=== PATIENT | male | born 1985 | race Caucasian/White ===

== ENCOUNTER 2019-11-04 04:11 | Observation (INO) | payer OTHER ==
[2019-11-04] MEDS ORDERED: Ketorolac INJ* 30 MG/ML 1 ML VIAL IV PUSH ONE (04:32)
[2019-11-04] MEDS ORDERED: NS 0.9% 1000 ML** 2,000 ML IV ONE (04:32)
[2019-11-04] MEDS ORDERED: Morphine 10 MG/ML VIAL (1 ml) IV ONE (04:32)
[2019-11-04] MEDS ORDERED: Ondansetron INJ* 2 MG/ML VIAL IV ONE (04:32)
[2019-11-04 04:53] LABS: Urine Appearance Clear; Urine Bilirubin Negative (Negative); Urine Blood Negative (Negative); Urine Color Amber; Urine Glucose Negative (Negative); Urine Ketones 2+ (Negative); Urine Nitrite Negative (Negative); Urine Protein 2+(100 mg/dL) (Negative); Urine Specific Gravity 1.038 (1.010-1.030); Urine Urobilinogen Negative (Negative)
[2019-11-04 05:03] LABS: Urine Bacteria Absent (Absent); Urine Red Blood Cell 1+(3-5/hpf) (Absent); Urine White Blood Cell Trace(0-5/hpf) (Absent)
[2019-11-04 05:10] LABS: ABS Basophils 0.1 10^3/ul (0-0.2); ABS Lymphocytes 1.4 10^3/ul (1.0-4.8); ABS Neutrophils 16.1 10^3/ul (1.5-7.7); Hematocrit 47 % (42-52); Hemoglobin 16.3 g/dL (14.0-18.0); Lymphocyte % 7.4 %; Mean Corpuscular HGB Conc 35 g/dL (31-36); Mean Corpuscular Hemoglobin 30 pg (27-31); Mean Corpuscular Volume 86 fL (80-94); Mean Platelet Volume 9.2 fL (7.4-10.4); Platelet Count 239 10^3/uL (150-450); Red Blood Count 5.43 10^6 /uL (4.18-5.48); Red Cell Distribution Width 13 % (10-15); White Blood Count 18.5 10^3/uL (3.5-10.8)
[2019-11-04 05:32] LABS: Albumin 5.7 g/dL (3.2-5.2); Albumin/Globulin Ratio 1.6 (1-3); BUN/Creatinine Ratio 16.7 (8-20); Calcium 11.9 mg/dL (8.6-10.3); EGFR African American 88.5 (>60); EGFR Non-African American 73.1 (>60); Globulin 3.6 g/dL (2-4); Potassium 3.9 mmol/L (3.5-5.0); Total Bilirubin 0.7 mg/dL (0.2-1.0); Total Protein 9.3 g/dL (6.4-8.9)
--- NOTE | 2019-11-04 07:30 | ED ---
Progress - Progress Note Progress Note: The patient is a sign-out from Dr. Ulysses Gould MD, to Dr. Triston Killian MD, at change of shift at 0700 on 11/04/2019, pending Gallbladder Ultrasound and disposition. Gallbladder ultrasound reveals cholecystitis with 4 mm gallbladder wall thickening and trace fluids. 0943 - the patient's case was discussed with Dr. Stephens, and he will see the patient in the ED, and he will admit the patient for surgery - Results/Orders Results/Orders: Gallbladder Ultrasound Impression: Concern for cholecystitis in the context of 4 mm gallbladder wall thickening and trace pericholecystic fluid. If clinically equivocal, a HIDA scan could be performed. ED physician has reviewed this report. Course/Dx - Course Course Of Treatment: This patient was signed out to Dr. Sanchez at shift change. He requested to follow-up the right upper quadrant ultrasound. He reports that the patient has right upper quadrant pain and increased WBCs and LFTs. Right upper quadrant ultrasound impression: Concerns for cholecystitis in the context of 4 mm gallbladder wall thickening and trace pericholecystic fluid. I discussed the case with Dr. Stephens from surgery and he agrees to admit the patient to his services. The patient was given Zosyn in the ED. - Diagnoses Provider Diagnoses: Cholecystitis - Provider Notifications Discussed Care Of Patient With: López Stephens - surgery Time Discussed With Above Provider: 09:43 Instructed by Provider To: Will See In ED - I discussed the patient's case with Dr. Stephens, and he will come see the patient in the ED. He will admit the patient. Discharge ED - Sign-Out/Discharge Documenting (check all that apply): Patient Departure - Patient admitted for surgery by Dr. Stephens., Receiving Sign-Out Receiving patient FROM: Ulysses Gould - Patient is a sign-out from Dr. Ulysses Gould MD, at 0700 on 11/04/2019, pending Gallbladder Ultrasound and disposition. - Discharge Plan Condition: Stable Disposition: ADMITTED TO [facility] - Billing Disposition and Condition Condition: STABLE Disposition: Admitted to [facility] - Attestation Statements Document Initiated by Scribe: Yes Documenting Scribe: Patito Portillo Provider For Whom Scribe is Documenting (Include Credential): Dr. Triston Killian MD Scribe Attestation: Patito Ennis scribed for Dr. Triston Killian MD on 11/04/19 at 1849. Scribe Documentation Reviewed: Yes Provider Attestation: The documentation as recorded by the scribe, Patito Portillo accurately reflects the service I personally performed and the decisions made by me, Dr. Triston Killian MD Status of Scribe Document: Viewed Procedures - Sedation Patient Received Moderate/Deep Sedation with Procedure: No
--- NOTE | 2019-11-04 07:30 | ED ---
Abdominal Pain/Male - HPI Summary HPI Summary: Patient is a 34 y/o M presenting to [facility] with complaints of upper abdominal pain and N/V. He states that the pain had onset yesterday and has progressively worsened. He reports Hx of gallstones. Patient notes that he has had similar episodes of pain in the past but notes this current episode has been more persistent. On triage, pain is rated 4/10. It is noted that the patient had [place] food for lunch and an energy drink which aggravated his pain. He reports Hx of asthma. He took two Tylenol, one at 2100 12/3 and another at 0200 12/4. He takes supplemental vitamins. Home medications and allergies are reviewed. - History of Current Complaint Chief Complaint: EDAbdPain Stated Complaint: ABD PAIN PER PT Time Seen by Provider: 11/04/19 04:24 Hx Obtained From: Patient Onset/Duration: Lasting Hours, Still Present Timing: Constant, Lasting Hours Severity Currently: Moderate Pain Intensity: 4 Pain Scale Used: 0-10 Numeric Location: Other - upper abdomen Aggravating Factor(s): Food, Other: - energy drink Associated Signs And Symptoms: Positive: Nausea, Vomiting. Negative: Fever - Allergies/Home Medications Allergies/Adverse Reactions: Allergies Allergy/AdvReac Type Severity Reaction Status Date / Time No Known Allergies Allergy Verified 11/04/19 04:17 PMH/Surg Hx/FS Hx/Imm Hx GI History: Reports: Hx Gall Bladder Disease Sensory History: Denies: Hx Legally Blind, Hx Deafness Opthamlomology History: Denies: Hx Legally Blind EENT History: Denies: Hx Deafness Infectious Disease History: No Infectious Disease History: Denies: Traveled Outside the [place] in Last 30 Days - Family History Known Family History: Negative: Renal Disease - Social History Alcohol Use: Rare Substance Use Type: Reports: None Smoking Status (MU): Never Smoked Tobacco Review of Systems Negative: Fever - on vitals, temp is 98.4 F Positive: Abdominal Pain, Vomiting, Nausea All Other Systems Reviewed And Are Negative: Yes Physical Exam - Summary Physical Exam Summary: Appearance: Well-appearing, Well-nourished, restless and uncomfortable appearing Skin: Warm, dry, no obvious rash Eyes: sclera anicteric, no conjunctival pallor ENT: mucous membranes moist, pharynx appears normal Neck: Supple, nontender Respiratory: Clear to auscultation, no signs of respiratory distress Cardiovascular: Normal S1, S2. No murmurs. Normal distal pulses in tibial and radial bilaterally. Abdomen: Soft, Mild epigastric and RUQ tenderness, normal active bowel sounds present Musculoskeletal: Normal, Strength/ROM Intact Neurological: A&Ox3, awake and alert, mentation is normal, speech is fluent and appropriate Psychiatric: affect is normal, does not appear anxious or depressed Triage Information Reviewed: Yes Vital Signs On Initial Exam: Initial Vitals Temp Pulse Resp BP Pulse Ox 98.4 F 78 18 123/85 98 11/04/19 04:17 11/04/19 04:17 11/04/19 04:17 11/04/19 04:17 11/04/19 04:17 Vital Signs Reviewed: Yes Procedures - Sedation Patient Received Moderate/Deep Sedation with Procedure: No Diagnostics - Vital Signs Vital Signs Temp Pulse Resp BP Pulse Ox 11/04/19 07:00 64 95 11/04/19 06:00 75 95 11/04/19 05:53 82 115/66 96 11/04/19 05:23 81 119/59 90 11/04/19 05:10 72 133/70 93 11/04/19 05:00 75 98 11/04/19 04:53 70 18 135/74 98 11/04/19 04:42 76 159/76 98 11/04/19 04:17 98.4 F 78 18 123/85 98 - Laboratory Lab Results: Lab Results 11/04/19 11/04/19 11/04/19 Range/Units 04:42 05:00 05:00 WBC 18.5 H (3.5-10.8) 10^3/uL RBC 5.43 (4.18-5.48) 10^6 /uL Hgb 16.3 (14.0-18.0) g/dL Hct 47 (42-52) % MCV 86 (80-94) fL MCH 30 (27-31) pg MCHC 35 (31-36) g/dL RDW 13 (10-15) % Plt Count 239 (150-450) 10^3/uL MPV 9.2 (7.4-10.4) fL Neut % (Auto) 87.0 % Lymph % (Auto) 7.4 % [place] % (Auto) 5.3 % Eos % (Auto) 0.0 % Baso % (Auto) 0.3 % Absolute Neuts (auto) 16.1 H (1.5-7.7) 10^3/ul Absolute Lymphs (auto) 1.4 (1.0-4.8) 10^3/ul Absolute Monos (auto) 1.0 H (0-0.8) 10^3/ul Absolute Eos (auto) 0.0 (0-0.6) 10^3/ul Absolute Basos (auto) 0.1 (0-0.2) 10^3/ul Absolute Nucleated RBC 0.0 10^3/ul Nucleated RBC % 0.0 Sodium 137 (135-145) mmol/L Potassium 3.9 (3.5-5.0) mmol/L Chloride 101 (101-111) mmol/L Carbon Dioxide 23 (22-32) mmol/L Anion Gap 13 H (2-11) mmol/L BUN 19 (6-24) mg/dL Creatinine 1.14 (0.67-1.17) mg/dL Est GFR ( Amer) 88.5 (>60) Est GFR (Non-Af Amer) 73.1 (>60) BUN/Creatinine Ratio 16.7 (8-20) Glucose 131 H (70-100) mg/dL Calcium 11.9 H (8.6-10.3) mg/dL Total Bilirubin 0.70 (0.2-1.0) mg/dL AST 76 H (13-39) U/L ALT 207 H (7-52) U/L Alkaline Phosphatase 97 (34-104) U/L Total Protein 9.3 H (6.4-8.9) g/dL Albumin 5.7 H (3.2-5.2) g/dL Globulin 3.6 (2-4) g/dL Albumin/Globulin Ratio 1.6 (1-3) Lipase 19 (11.0-82.0) U/L Urine Color [place] Urine Appearance Clear Urine pH 5.0 (5-9) Ur Specific [place] 1.038 H (1.010-1.030) Urine Protein 2+(100 mg/dl) A (Negative) Urine Ketones 2+ A (Negative) Urine Blood Negative (Negative) Urine Nitrate Negative (Negative) Urine Bilirubin Negative (Negative) Urine Urobilinogen Negative (Negative) Ur Leukocyte Esterase Negative (Negative) Urine WBC (Auto) Trace(0-5/hpf) (Absent) Urine RBC (Auto) 1+(3-5/hpf) A (Absent) Urine Bacteria Absent (Absent) Urine Glucose Negative (Negative) Urine Ascorbic Acid * A (Negative) Result Diagrams: 11/04/19 05:00 11/04/19 05:00 Lab Statement: Any lab studies that have been ordered have been reviewed, and results considered in the medical decision making process. - EKG 0413 Cardiac Rate: NL - rate of 72 BPM EKG Rhythm: Sinus Rhythm Summary of EKG Findings: EKG showed NSR at 72 BPM, P waves, QRS complex, and T waves are within normal limits, T waves and intervals are normal, no ischemic changes, no STEMI. This is a normal EKG. ED physician has reviewed and interpreted this EKG. Abdominal Pain Male Course/Dx - Course Course Of Treatment: Patient is a 34 y/o M presenting to [facility] with complaints of upper abdominal pain and N/V. He states that the pain had onset yesterday and has progressively worsened. He reports Hx of gallstones. Patient notes that he has had similar episodes of pain in the past but notes this current episode has been more persistent. On physical exam, patient is noted to be restless and uncomfortable appearing. Mild epigastric and RUQ tenderness noted. EKG showed NSR at 72 BPM, P waves, QRS complex, and T waves are within normal limits, T waves and intervals are normal, no ischemic changes, no STEMI. This is a normal EKG. Bloodwork was obtained. Abnormal values include WBC 18.5, absolute neuts 16.1, absolute monos 1, anion gap 13, glucose 131, calcium 11.9, AST 76, ALT 207 , total protein 9.3, albumin 5.7. UA showed 2+ protein, 2+ ketones, 1+ RBC, ascorbic acid present. During ED course, patient received fluids, Zofran 8 mg IV , morphine 10 mg IV, and toradol 10 mg IV. Patient is signed out to Dr. Vogel at 0700 11/04/19 shift change pending US gallbladder. - Diagnoses Provider Diagnoses: Cholecystitis Discharge ED - Sign-Out/Discharge Documenting (check all that apply): Sign-Out Patient Signing out patient TO: Triston Vogel - Discharge Plan Condition: Stable Referrals: No Primary Care Phys,NOPCP [Primary Care Provider] - - Attestation Statements Document Initiated by Scribe: Yes Documenting Scribe: MARICHUY BURTON Provider For Whom Scribe is Documenting (Include Credential): TRISTON VOGEL MD Scribe Attestation: IMARICHUY, scribed for TRISTON VOGEL MD on 11/04/19 at 0732. Status of Scribe Document: Ready
[2019-11-04] MEDS ORDERED: Piperacillin/Tazobac ADVAN(*) 3.375 GM in NS 0.9% 100 ML* 100 ML IVPB ONE (09:44)
[2019-11-04] MEDS ORDERED: Ondansetron INJ* 2 MG/ML VIAL IV PRN (11:55)
[2019-11-04] MEDS ORDERED: HYDROmorphone INJ1* 1 MG/ML SYRINGE IV SLOW PU PRN (11:55)
[2019-11-04 12:07] LABS: C Reactive Protein 7.88 mg/L (<8.01)
--- NOTE | 2019-11-04 13:05 | HP ---
ADMISSION HISTORY AND PHYSICAL: DATE OF ADMISSION: 11/04/19 CHIEF COMPLAINT: Epigastric and right upper quadrant abdominal pain and known gallstones. HISTORY OF PRESENT ILLNESS: Mr. 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 He was previously living in [place] and he states that over the past several years he has had multiple episodes of epigastric and right upper quadrant abdominal pain, mainly after eating larger meals at night. He had an extensive workup, which we do not have results available, but he was told that he had gallstones and at that time it was recommended that he undergo a cholecystectomy. His schedule was complicated with his recent move and he has not sought care here in [place] for his gallstones. He states he has had persistent intermittent typical biliary colicky type pain. Yesterday, however, he had rather large meal and an energy drink for lunch and pain became aggravated in its typical fashion, becoming quite severe with associated nausea and vomiting. The pain persisted and, due to its longer duration than usual and the fact that the pain was quite severe, he presented to the emergency room. Here, he was noted to be afebrile with stable vital signs. He was noted to have tenderness in the epigastric and right upper quadrant. Laboratory workup included a white blood cell count of 18,000 with a slight increase in neutrophils. Electrolytes, BUN and creatinine were unremarkable. He has total bilirubin of 0.7 and AST and ALT of 76 and 207 with a normal alkaline phosphatase. Lipase was normal. He underwent an ultrasound of his gallbladder. I did review these images. These show multiple gallstones within the gallbladder and gallbladder wall thickened at 4 mm with some trace pericholecystic fluid. This is concerning for acute calculous cholecystitis. Surgical consultation was obtained. He received morphine and Zofran in the emergency room and is feeling better on initial visit. PAST MEDICAL HISTORY: Asthma, but has not been active since moving to [place]. PAST SURGICAL HISTORY: Tonsillectomy. MEDICATIONS: Include: 1. Pepto-Bismol. 2. Tylenol. 3. Multivitamins. ALLERGIES: He has no known drug allergies. SOCIAL HISTORY: He is . 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 He drinks alcohol on a social basis. He is originally from [facility]. He does not use tobacco. His is present in the emergency room. REVIEW OF SYSTEMS: A full 14-point review was completed. Pertinent positives as noted above. Cardiovascular: He has no chest pain or cardiac disease. Pulmonary: As per above. GI: As per above. He has no dysphagia or reflux. : There has been no urgency or hematuria. PHYSICAL EXAMINATION GENERAL: He is a slightly overweight male with normal attention to grooming. He is awake, alert, and conversive, appears to be in no apparent distress. VITAL SIGNS: He is afebrile, pulse 78, blood pressure 123/75. HEENT: Sclerae are anicteric. Oral mucosa is slightly dry. LUNGS: Clear to auscultation with normal respiratory effort. HEART: Regular rate and rhythm without murmurs, rubs, or gallops. ABDOMEN: Soft and somewhat protuberant. He has no prior surgical incisions or hernias. He has some mild tenderness with guarding in the epigastric and right upper quadrant. There is no tenderness elsewhere in the abdomen. Bowel sounds were normal throughout. EXTREMITIES: Show no cyanosis or edema. IMPRESSION: Acute calculous cholecystitis. The patient has known history of gallstones and has had what appears to be symptomatic cholelithiasis for many years and it was recommended that he undergo a cholecystectomy while living in [place], but he has not followed up with primary care or surgeon here in [place]. He presents now with persistent epigastric and right upper quadrant abdominal pain with a significant leukocytosis and mild elevation of his liver transaminases, but a normal bilirubin. Ultrasound findings consistent with acute calculous cholecystitis. I had a long discussion with the patient and his concerning management. I believe that he does have acute calculous cholecystitis and my recommendation would be admission to the hospital today with initiation of IV antibiotics and IV fluids with a planned laparoscopic cholecystectomy. We discussed other options. He was somewhat reluctant to be admitted and proceed with surgery and had a multitude of questions regarding outpatient management. I did discuss treating him with oral antibiotics as an outpatient with followup in the office with scheduled interval cholecystectomy; however, I do not feel that this is most likely the optimal management and I suspect that if he does not improve with antibiotics in the next 24 to 48 hours, he will return to the emergency room later this week with a more severe case of cholecystitis and increased difficulty with a laparoscopic cholecystectomy and subsequent increased risks. I discussed all of this and my firm recommendation was that he be admitted today for surgery in the next 24 to 48 hours. I did allow he and his to have discuss this among themselves and they have decided that they would like to be admitted. I am not certain he will be placed on the add-on schedule for a cholecystectomy today, but due to the scheduling restrictions, surgery may not be performed until tomorrow and he is well aware of this. PLAN: 1. He will be admitted to the surgical service on same-day surgery. 2. We will keep him n.p.o. 3. IV Zosyn will be started. 4. Normal saline will be administered. 5. Analgesia. The procedure of laparoscopic cholecystectomy was discussed with the patient and his and the risks of, but not limited to bleeding, infection, intraabdominal abscess formation, injury to peritoneal and retroperitoneal structures, possibility of an open procedure, recovery times, risks of general anesthesia were all discussed. [id number]/[facility] #: [id number] LUCILA
[2019-11-04] MEDS: NS 0.9% 1000 ML** 1,000 ML IV SCH ×2 (13:15→22:53)
[2019-11-04] MEDS: Piperacillin/Tazobactam VIAL*) 3.375 GM in NS 0.9% 100 ML* 100 ML IVPB SCH ×2 (15:59→22:51)
[2019-11-05] MEDS ORDERED: Acetaminophen TAB* 325 MG PO ONE (06:00)
[2019-11-05] MEDS ORDERED: Lactated Ringers 1000 ML Bag* 1,000 ML IV SCH (06:00)
[2019-11-05] MEDS ORDERED: Buffered Lidocaine 1% SYRIN* 1 ML/SYRINGE INTRADERM ONE (06:00)
[2019-11-05] MEDS: NS 0.9% 1000 ML** 1,000 ML IV SCH (07:02)
[2019-11-05] MEDS ORDERED: Piperacillin/Tazobactam VIAL*) 3.375 GM in NS 0.9% 100 ML* 100 ML IVPB SCH (07:30)
[2019-11-05 10:38] LABS: ABS Eosinophils 0.1 10^3/ul (0-0.6); ABS Lymphocytes 2.2 10^3/ul (1.0-4.8); ABS Monocytes 0.7 10^3/ul (0-0.8); ABS Neutrophils 6.2 10^3/ul (1.5-7.7); Eosinophil % 1.1 %; Hematocrit 39 % (42-52); Hemoglobin 13.8 g/dL (14.0-18.0); Lymphocyte % 23.7 %; Mean Corpuscular HGB Conc 35 g/dL (31-36); Mean Corpuscular Hemoglobin 30 pg (27-31); Mean Corpuscular Volume 86 fL (80-94); Mean Platelet Volume 8.8 fL (7.4-10.4); Platelet Count 168 10^3/uL (150-450); Red Blood Count 4.57 10^6 /uL (4.18-5.48); Red Cell Distribution Width 13 % (10-15); White Blood Count 9.1 10^3/uL (3.5-10.8)
[2019-11-05 10:54] LABS: Albumin 4.2 g/dL (3.2-5.2); Albumin/Globulin Ratio 1.8 (1-3); BUN/Creatinine Ratio 10.1 (8-20); Calcium 8.9 mg/dL (8.6-10.3); EGFR African American 104.1 (>60); Globulin 2.4 g/dL (2-4); Indirect Bilirubin 0.7 mg/dL (0.3-1.0); Total Bilirubin 0.8 mg/dL (0.2-1.0); Total Protein 6.6 g/dL (6.4-8.9)
[2019-11-05] MEDS ORDERED: fentaNYL* 50 MCG/ML 5 ML VIAL (250 MCG VIAL) ONE (10:57)
[2019-11-05] MEDS ORDERED: Midazolam* 1 MG/ML 2 ML VIAL (2 MG) ONE (10:57)
[2019-11-05] MEDS ORDERED: Propofol* 10 MG/ML 20 ML BTL ONE (10:58)
[2019-11-05] MEDS ORDERED: Lidocaine 2% PF * 5 ML VIAL ONE (10:58)
[2019-11-05] MEDS ORDERED: Bupivacaine 0.25% SDV* 30 ML ONE (11:37)
[2019-11-05] MEDS ORDERED: Rocuronium* 10 MG/ML VIAL ONE ×2 (12:25→13:18)
[2019-11-05] MEDS ORDERED: Ondansetron INJ* 2 MG/ML VIAL ONE (12:27)
[2019-11-05] MEDS ORDERED: Dexamethasone IV* 4 MG/ML 1 ML (4 MG) ONE (12:28)
[2019-11-05] MEDS ORDERED: HYDROmorphone INJ1* 1 MG/ML SYRINGE ONE (12:28)
[2019-11-05] MEDS ORDERED: HYDROmorphone INJ1* 1 MG/ML SYRINGE IV PRN (12:42)
[2019-11-05] MEDS ORDERED: Ondansetron INJ* 2 MG/ML VIAL IV PRN (12:42)
[2019-11-05] MEDS ORDERED: diPHENhydraMINE IV* 50 MG/ML 1 ml VIAL (BENADRYL) IV PRN (12:42)
[2019-11-05] MEDS ORDERED: PROCHLORPERAZINE INJ 5 MG/ML 2 ML VIAL IV PRN (12:42)
[2019-11-05] MEDS ORDERED: Naloxone* 0.4 MG/ML 1 ML VIAL IV PRN (12:42)
[2019-11-05] MEDS ORDERED: oxyCODONE TAB* 5 MG TAB PO PRN (12:42)
[2019-11-05] MEDS ORDERED: Glycopyrrolate IV* 0.2 MG/ML 1 ML VIAL ONE (13:50)
[2019-11-05] MEDS ORDERED: Neostigmine Methylsulfate* 3 MG/3 ML SYRINGE ONE (13:50)
[2019-11-05] MEDS ORDERED: Ketorolac INJ* 30 MG/ML 1 ML VIAL ONE (13:51)
--- NOTE | 2019-11-05 14:16 | BRIEFOPN ---
Brief Operative/Procedure Note - Operation Details Pre-Op Diagnosis: Acute cholecystitis Post-Op Diagnosis: Acute cholecystitis Procedures: Laparoscopic cholecystectomy Surgeon(s)/Proceduralists: Ashlee Sargent MD. Product Test Specialist: Leeroy Ernst MD. Kong FERNANDEZ student Anesthesia: General Estimated Blood Loss: 10ml Findings: Inflamed and distended gallbladder Specimen(s)/Culture(s) Description: Gallbladder Complications: None
[2019-11-05] MEDS ORDERED: Acetaminophen TAB* 325 MG ONE (15:24)
[2019-11-05 16:56] VITALS: BP 131/74
--- NOTE | 2019-11-05 22:40 | OP ---
DATE OF OPERATION: 11/05/19 - DATE OF : 83 SURGEON: Shahbaz Ernst MD INTERNAL MEDICINE PHYSICIAN ASSISTANT: Ashlee Sargent MD PRE-OP DIAGNOSIS: Cholecystitis. POST-OP DIAGNOSIS: Cholecystitis. OPERATIVE PROCEDURE: Laparoscopic cholecystectomy. INDICATION FOR PROCEDURE: Cholecystitis. This is a patient of Dr. Stephens who was admitted for cholecystitis. Dr. Sargent and I were asked to assume care and hopefully his cholecystectomy. We met the patient, examined the patient, reviewed the chart and studies. We discussed surgery and risks including, but not limited to, bleeding, infection, injury to intraabdominal contents including the bowel, liver, bile duct, cystic duct leak, among others. His was present for discussion. They seemed to understand. He wished to proceed with surgery and all questions were answered. DESCRIPTION OF PROCEDURE: The patient was taken to the operating room, placed supine. Preoperative antibiotics had been given. After the successful induction of general endotracheal anesthesia, the abdomen was prepped and draped in sterile fashion. A time-out was performed indicating correct patient and correct procedure and his abdomen was marked. The skin above the umbilicus was anesthetized with plain lidocaine by Dr. Sargent and carried down to the deep subcutaneous tissue. The fascia was opened along with the peritoneum and a 12- mm port was placed into the peritoneal cavity under direct visualization. Pneumoperitoneum was then achieved with 15 mmHg and camera was placed in the abdomen. The abdomen was scanned. There was no obvious injury from trocar placement. A 5-mm subxiphoid and 2 right-sided 5-mm trocars were placed under direct visualization on the camera. The patient was placed in the reverse Trendelenburg position, tilted slightly towards the left. The fundus of the gallbladder, which appeared edematous and inflamed, was grasped and retracted up and over the liver. The omentum was adhered to the lower part of the gallbladder. The omentum was bluntly taken off the infundibulum which was retracted laterally. The cystic artery was identified, isolated, clipped and divided. The cystic duct was identified, isolated, clipped and divided. The gallbladder was removed from the hepatic bed using Bovie cautery hook. It was placed into an Endo bag and removed through the umbilical port site. It was filled with multiple gallstones. The right upper quadrant was irrigated and aspirated dry. EBL was minimal. Hemostasis was intact. Endo clips were then placed. The abdomen was scanned and there were no obvious injuries noted. Pneumoperitoneum was released from the abdomen. Trocars were removed. The midline fascia was closed with [id number] 0 Vicryl suture. Wounds were irrigated. The skin was closed with Monocryl. He tolerated the procedure well. He was extubated and taken to Recovery in stable condition. [id number]/[facility] #: [id number] [facility] HOSPITALRowan
--- NOTE | 2019-11-06 11:45 | DS ---
Date of admission: 11/04/2019 Date of discharge 11/05/2019 Reason for admission: Acute cholecystitis Discharge diagnosis: Acute cholecystitis Discharge condition: Stable Pertinent laboratory studies: Laboratory Tests 11/04/19 11/05/19 05:00 10:29 WBC 18.5 H 9.1 Procedure: Laparoscopic cholecystectomy Hospital course: Johan Vidal is a 34-year-old man who is otherwise healthy who has been worked up previously for right upper quadrant abdominal pain and biliary colic prior to his recent moved to [place]. He presented to the ED on 11/04/2019with an episode of severe abdominal pain. his white count was elevated to 18.5. Ultrasound showed a thickened gallbladder wall and trace pericholecystic fluid. He was admitted to the surgical service for acute cholecystitis. He was started on Zosyn. On 11/05/2019, he was brought to the operating room for laparoscopic cholecystectomy. Postoperatively, he recovered in the PACU. His pain was well controlled. He was tolerating clear liquids. He was discharged to home in stable condition. Disposition: Home DISCHARGE INSTRUCTIONS FOLLOWING LAPAROSCOPIC OR OPEN CHOLECYSTECTOMY (REMOVAL OF GALL BLADDER) OFFICE VISIT: You should be seen in the office on 11/12/2019. DIET: During the first few weeks after surgery, it is advisable to avoid fried and fatty foods. Dairy products may also cause you some discomfort. Be patient and give your digestive system time to adjust. Eat a light diet. You may find that smaller, more frequent meals may be more helpful. WOUND CARE: * Shower daily. Wash over incision with regular soap and water. * Leave the skin tapes (steri-strips) on until they begin to loosen and curl on the ends. Then you may gently ease the tapes off, starting at both ends and working toward the incision. As the surgical wound heals, there is likely to be slight swelling, redness, or bruising of the skin. A few days later, the incision may feel lumpy. All of these are normal, and all of them will disappear in time. PLEASE CALL THE OFFICE SOON POSSIBLE IF ANY OF THE FOLLOWING OCCUR: * Sharp increase in pain, redness or swelling of the incision. * Presence of any wound drainage: yellow fluid, bright red blood, or pus (cream- colored drainage). * Fever over 101 degrees orally. ACTIVITY: * Gradually increase activity within your tolerance. * Walking is the best exercise for you at this time. * Climbing stairs is fine, but go slowly at first. * Do not lift anything heavier than 10 pounds for 2 weeks. This is an estimation ; therefore, use your judgment. * Do not drive a car until all of your pain is gone and your energy level is normal. LAPAROSCOPIC DISCOMFORT: You may experience some discomfort in your shoulders, chest or back for a few days. This is a common occurrence and is harmless. This discomfort is caused by carbon dioxide used to inflate the abdomen. The discomfort will disappear when the gas is absorbed by the body. PAIN MEDICATION CAUTION: Your pain medicine may contain a narcotic (i.e. Codeine ). This can cause drowsiness and constipation. Do not drink alcohol, drive a car or work around machines while taking the medicine. Drink plenty of liquids to help prevent constipation. You may use Milk of Magnesia to relieve constipation. MEDICATIONS: Please see Reconciliation Form for usual medications IF YOU HAVE ANY QUESTIONS OR PROBLEMS PLEASE FEEL FREE TO CALL THE OFFICE AT TO TALK WITH ONE OF OUR DOCTORS OR NURSES. OUR ANSWERING SERVICE IS AVAILABLE 24 HOURS/DAY.
== END 2019-11-05 16:45 | disposition home or self-care (01) ==
LOC: ED 04:11 → SSU 11:55
PROVIDERS: ADMIT Surgery; ATTEND Surgery
DX: K81.0 Acute cholecystitis (principal); R10.11 Right upper quadrant pain; Z79.899 Other long term (current) drug therapy; Z87.19 Personal history of other diseases of the digestive system; R11.2 Nausea with vomiting, unspecified; R50.9 Fever, unspecified
CPT/HCPCS: 36415; 76705; 80048; 80053; 80076; 81003; 81015; 83690; 85025; 86140; 87086; 93005; 99284; A9270-GY; G0378; J1100; J1170; J1885; J2250; J2270; J2405; J2543; J2704; J2710; J3010; J3490